=== PATIENT | female | born 1960 | race Caucasian/White ===

== ENCOUNTER 2016-10-28 15:32 | Emergency (ER) | payer MEDICAID ==
[2016-10-28 17:08] VITALS: BP 128/73
== END 2016-10-28 17:08 | disposition home or self-care (01) ==
LOC: ED 15:32
DX: G51.0 Bell's palsy (principal); I10 Essential (primary) hypertension; E11.9 Type 2 diabetes mellitus without complications; Z79.84 Long term (current) use of oral hypoglycemic drugs